=== PATIENT | male | born 1980 | race Caucasian/White ===

== ENCOUNTER → 2016-08-01 | Outpatient (CLI) | payer OTHER ==
[~2016-08-01] MED LIST: DOXY100C2 PO; HYDR-965 PO
--- NOTE | 2016-08-01 13:30 | RAD ---
Right lower extremity venous Doppler ultrasound History: Right lower extremity swelling and calf redness. M79.89, L03.115. Comparison: None. Procedure: Color Doppler, spectral Doppler, and grayscale images are obtained with and without compression in the area of the common femoral vein, superficial femoral vein - femoral vein junction, main femoral vein (superficial femoral vein) and popliteal vein. Veins of the proximal calf are also imaged. Findings: There is normal duplex flow, color flow and compressibility of all visualized vein segments. No evidence of deep venous thrombosis is present. Grayscale images demonstrate mildly enlarged right inguinal lymph nodes, likely reactive Impression: No evidence of right lower extremity deep venous thrombosis.
== END | disposition home or self-care (01) ==
LOC: US 12:32
PROVIDERS: ATTEND Physician Assistant
DX: L03.115 Cellulitis of right lower limb (principal); M79.89 Other specified soft tissue disorders
CPT/HCPCS: 93971

== ENCOUNTER 2016-08-02 20:36 | Emergency (ER) | payer OTHER ==
[~2016-08-02] VITALS: Ht 188 cm; Wt 132.9 kg
[2016-08-02 20:45] VITALS: BP 124/61
[2016-08-02] MEDS ORDERED: HYDR-965 PO (21:45)
[2016-08-02] MEDS ORDERED: DOXY100C2 PO (21:45)
--- NOTE | 2016-08-02 21:48 | PHYS DOC ---
General Chief Complaint: CELLULITIS Stated Complaint: CELLULITIS Time Seen by MD: 20:55 Source: patient Exam Limitations: no limitations Problems: History of Present Illness Initial Comments Pt is 35/M to ED with spouse c/o RLE cellulitis. Pt states he saw Aurelio Ferguson two days ago with right leg pain, MONTELONGO, nausea, and malaise. He was found to have RLE cellulitis, WBC reportedly 15k and US neg for DVT and BC have resulted no growth. Pt received rocephin IM past two days, currently prescribed cephalexin and naproxen/omeprazole. MONTELONGO/nausea/malaise sx have resolved, pt still with persistent right leg pain/redness. No new spread of redness or worsening of swelling according to pt. No fever/chills/sweats/ myalgias currently. Pt states pain medication not helping, he's unable to sleep or relax due to pain. RLE Venous Doppler US (08/01/16): No evidence right lower extremity deep venous thrombosis Onset: last week Severity: moderate Pain/Injury Location: right leg, right foot, right ankle Method of Injury: other Modifying Factors: worse with jarring, worse with movement, improves with rest Allergies: Coded Allergies: Penicillins (Verified Allergy, Unknown, 08/02/16) amoxicillin (Verified Allergy, Unknown, 08/02/16) Past Medical History Medical History: other (depression, HTN) Surgical History: noncontributory Social History Smoker: non-smoker Alcohol: none Drugs: none Review of Systems Constitutional: see HPI Respiratory: denies cough, denies shortness of breath, denies wheezing Cardiovascular: denies chest pain, denies palpitations, denies syncope Gastrointestinal: denies abdominal pain, denies diarrhea, denies vomiting Musculoskeletal: see HPIdenies joint swelling Skin: see HPI Psychiatric/Neurological: denies headache, denies numbness, denies paresthesia , denies weakness Physical Exam General Appearance: WD/WN, no apparent distress HEENT: normal ENT inspection Neck: non-tender, supple Cardiovascular/Respiratory: normal peripheral pulses, no respiratory distress Back: no CVA tenderness, no vertebral tenderness Legs: right leg other (erythema/warmth/induration/swelling from infrapatellar distally no abscess or draining lesion. R foot dry/red/scaly c/w tinea, pt has seen derm is on meds.) Neurologic/Tendon: normal sensation, normal motor functions, normal tendon functions, responds to pain, no evidence tendon injury Psychiatric: alert, oriented x 3 Skin: warm/dry (RLE as above) Departure Time of Disposition: 21:45 Disposition: 01 HOME, SELF-CARE Diagnosis: Cellulitis right leg Condition: GOOD Patient Instructions: Cellulitis, [id number], Community-Associated MRSA Additional Instructions: Rest, elevate right leg. Aggressive hydration with gatorade, water. Continue naprosyn, discontinue cephalexin. A tylenol #3 start pack dispensed in ED. Take 1-2 every 6 hours with food for pain. Rx: doxycycline, norco #20, take with food. Take stool softeners and increase fluids to avoid constipation. Follow up with your doctor in 2-3 days for recheck. Return to ED with new or changing symptoms. JESSICA CANTOR DO Aug 02, 2016 21:48
[2016-08-02] MEDS ORDERED: OXYCODONE/APAP 10/325 TABLET. PO ONE (22:00)
[2016-08-02] MEDS ORDERED: DOXYCYCLINE HYCLATE 100 MG TABLET PO ONE (22:00)
[2016-08-02] MEDS ORDERED: ONDANSETRON ODT 4 MG TAB.RAPDIS PO ONE (22:00)
[2016-08-02] MEDS ORDERED: ACETAMINOPHEN/CODEINE 300/30MG 4TABLET STARTPACK. PO ONE (22:00)
== END 2016-08-02 22:03 | disposition home or self-care (01) ==
LOC: ER 20:36
DX: L03.115 Cellulitis of right lower limb (principal); I10 Essential (primary) hypertension; M79.604 Pain in right leg; R53.81 Other malaise; Z88.0 Allergy status to penicillin; Z88.1 Allergy status to other antibiotic agents
CPT/HCPCS: 99284; Q0162

== ENCOUNTER 2016-08-03 22:03 | Emergency (ER) | payer OTHER ==
[~2016-08-03] VITALS: Ht 188 cm; Wt 132.9 kg
[2016-08-03 23:00] VITALS: BP 130/93
[2016-08-03 23:56] LABS: BASO % 1 % (0-3); EOS # 0.2 x10^3/uL (0.0-0.7); EOS % 2 % (0-3); HEMATOCRIT 44.4 % (39.0-53.0); HEMOGLOBIN 14.9 g/dL (13.0-17.5); LYMPH # 1.1 x10^3/uL (1.0-4.8); LYMPH % 14 % (24-48); MEAN CORPUSCULAR HEMOGLOBIN 30 pg (25-35); MEAN CORPUSCULAR HGB CONC 34 g/dL (31-37); MEAN CORPUSCULAR VOLUME 88 fL (79-100); MONO # 0.5 x10^3/uL (0.0-1.1); MONO % 6 % (0-9); NEUT # 5.8 x10^3uL (1.8-7.7); NEUT % 77 % (31-73); PLATELET COUNT 138 x10^3/uL (140-400); RED BLOOD COUNT 5.04 x10^6/uL (4.30-5.70); RED CELL DISTRIBUTION WIDTH 14.8 % (11.5-14.5); WHITE BLOOD COUNT 7.5 x10^3/uL (4.0-11.0)
[2016-08-04 00:04] LABS: CALCIUM 8.6 mg/dL (8.5-10.1); CREATININE 1.5 mg/dL (0.7-1.3); POTASSIUM 3.6 mmol/L (3.5-5.1)
--- NOTE | 2016-08-04 01:01 | PHYS DOC ---
General Chief Complaint: CELLULITIS Stated Complaint: CELLUITIS RIGHT LEG Time Seen by MD: 22:04 Source: patient, old records Exam Limitations: no limitations Problems: History of Present Illness Initial Comments Pt is 35/M to ED c/o RLE cellulitis. Pt returns to ED c/o no improvement right leg symptoms. States his right leg feels more swollen than before, is painful with walking and standing. No spread of erythema, it remains within a pen luiz outline from Thursday. He called Aurelio Damico today, was told to return to ED for US r/o DVT and hospital admission. ED VS: 97.7, 66, 20, 130/93, 96% RA Pt initially diagnosed RLE cellulitis on 07/31 Aurelio Damico. Pt received rocephin IM on 07/31 and 08/01, and on 08/02 began cephalexin. Pt seen by me on 08/02 after leg symptoms not improving. On that day we reviewed RLE US which was negative for DVT and repeated labs which were reassuring with normal VS. I changed antibiotics yesterday to include MRSA coverage doxycycline, and added norco for pt comfort. Pt states pain has been controlled at rest, but that his leg hurts when he is up and walking. Increase in swelling, no other new or progressive sx. Onset: other Severity: severe Pain/Injury Location: right leg Method of Injury: unknown Modifying Factors: worse with jarring, worse with movement, improves with rest Allergies: Coded Allergies: Penicillins (Verified Allergy, Unknown, 08/02/16) amoxicillin (Verified Allergy, Unknown, 08/02/16) Past Medical History Medical History: hypertension (depression) Surgical History: noncontributory Social History Smoker: non-smoker Alcohol: none Drugs: none Review of Systems Constitutional: denies chills, denies diaphoresis, denies fever, denies malaise Respiratory: denies cough, denies shortness of breath Cardiovascular: denies chest pain, denies palpitations Gastrointestinal: denies diarrhea, denies nausea, denies vomiting Genitourinary: denies dysuria, denies frequency Musculoskeletal: see HPI Skin: see HPI Psychiatric/Neurological: denies headache, denies numbness, denies paresthesia Physical Exam General Appearance: WD/WN, no apparent distress HEENT: normal ENT inspection Neck: non-tender, supple Cardiovascular/Respiratory: normal peripheral pulses, no respiratory distress Back: no CVA tenderness, no vertebral tenderness Legs: right leg other (erythema appears unchanged from yesterday, increased swelling and firmness posteriorly noted.) Neurologic/Tendon: normal sensation, normal motor functions, normal tendon functions, responds to pain, no evidence tendon injury Psychiatric: alert, oriented x 3 Skin: warm/dry (erythema) Orders, Labs, Meds PATIENT: NIYAH NINA ACCOUNT: [id number] : 1980 LOCATION: US AGE: 35 SEX: M EXAM STATUS: REG CLI ORD. PHYSICIAN: CLARENCE DAMICO REASON: cellulitis PROCEDURE: VENOUS LOWER EXTREMITY RIGHT Right lower extremity venous Doppler ultrasound History: Right lower extremity swelling and calf redness. M79.89, L03.115. Comparison: None. Procedure: Color Doppler, spectral Doppler, and grayscale images are obtained with and without compression in the area of the common femoral vein, superficial femoral vein - femoral vein junction, main femoral vein (superficial femoral vein) and popliteal vein. Veins of the proximal calf are also imaged. Findings: There is normal duplex flow, color flow and compressibility of all visualized vein segments. No evidence of deep venous thrombosis is present. Grayscale images demonstrate mildly enlarged right inguinal lymph nodes, likely reactive Impression: No evidence of right lower extremity deep venous thrombosis. DICTATED AND SIGNED BY: OJSE E CHACON MD DATE: 08/01/16 1326 CC: CLARENCE DAMICO ~ WBC 7.5, plt 138, Na 134, BUN 17, Cr 1.5, lactic acid 1.4 I discussed admission criteria with pt/spouse. Criteria not met, offered pt admission for intractable pain pt declined. He expressed agreement/ understanding with treatment plan. Departure Time of Disposition: 01:59 Disposition: 01 HOME, SELF-CARE Diagnosis: RLE Cellulitis Condition: GOOD Patient Instructions: Cellulitis, [id number] Additional Instructions: Elevate right leg, "pump the brakes" at commercial breaks. Continue doxycycline and as needed norco. Follow up with your doctor Thursday or Thursday for recheck. Return to ED with new/changing symptoms or if fever (T > 100.5 F) or elevated resting heart rate (> 100 bpm). JESSICA CANTOR DO Aug 04, 2016 01:01
--- NOTE | 2016-08-04 02:00 | RAD ---
INDICATION: Leg pain. Swelling. COMPARISON: August 01, 2016 TECHNIQUE: Grayscale, color and spectral doppler ultrasound images are obtained through the right leg deep venous system. FINDINGS: Vascular flow is seen in the common femoral, superficial femoral, popliteal and visualized calf veins. IMPRESSION: No deep vein thrombosis identified of the right leg. There is right leg edema seen Enlarged lymph node in the right groin measuring 47 x 13 millimeters. Could be reactive in nature but would consider obtaining a follow-up examination to ensure decreased to exclude neoplastic causes. Electronically signed by: Chalino Aragon (Aug 04, 2016 01:58:58)
== END 2016-08-04 02:15 | disposition home or self-care (01) ==
LOC: ER 22:11
DX: L03.115 Cellulitis of right lower limb (principal); I10 Essential (primary) hypertension; Z88.0 Allergy status to penicillin; Z88.1 Allergy status to other antibiotic agents
CPT/HCPCS: 36415; 80048; 83605; 85027; 85379; 93971; 99285-25